=== PATIENT | female | born 1975 | race Caucasian/White ===

== ENCOUNTER → 2016-05-25 | Outpatient (CLI) | payer BC ==
[~2016-05-25] MED LIST: ALBU1AER9 INH; ESCI10TA17 PO; FLNIN/ NAE; LEVO-371 PO; OPTIRAY 320 IV PRN; RIVA1TAB4 PO
--- NOTE | 2016-05-25 17:23 | DIAGNOSTIC IMAGING REPORT ---
CT ANGIOGRAM OF THE CHEST CLINICAL HISTORY: Dyspnea. COMPARISON STUDY: Chest CT dated 01/06/2015. Chest x-ray dated 07/20/2015. TECHNIQUE: Following the IV administration of 99 cc of Optiray 320, CT angiogram of the chest was performed from the upper abdomen to the thoracic inlet utilizing the pulmonary embolus protocol. Images are reviewed in the axial, sagittal, and coronal planes. 3-D MIPS images are created and assessed. IV contrast was administered without complication. CT DOSE: 477.83 mGy.cm FINDINGS: Thyroid: Imaged portions of the thyroid gland are normal in size and attenuation. Thoracic aorta: The thoracic aorta is normal in caliber and demonstrates 4-vessel variant arch anatomy. No dissection is seen. Pulmonary vasculature: The pulmonary trunk is normal in caliber. There are no filling defects identified in main, lobar, or segmental pulmonary branches to suggest pulmonary embolus. Heart: The heart is normal in size and configuration, and without pericardial effusion. Lungs and pleural spaces: There is mild nonspecific peribronchial thickening. No airspace consolidation or pleural effusion is seen. A 3 mm right apical pulmonary nodule on image #234 is unchanged and of low suspicion. The trachea and central airways are patent. Mediastinum: There is no mediastinal lymphadenopathy. Shania: Clear. Axillae: There is no axillary lymphadenopathy. Upper abdomen: The liver is mildly enlarged and steatotic. A small hiatal hernia is identified. Skeletal structures: No lytic or blastic bony lesions are seen. IMPRESSION: 1. There is no evidence of pulmonary embolus in the main, lobar, or segmental pulmonary arteries. 2. There is no airspace consolidation or pleural effusion. Mild diffuse peribronchial thickening suggests reactive airway disease. Clinical correlation will be required. 3. Hepatic steatosis. Electronically signed by: Ravinder Killian M.D. 05/25/2016 5:21 PM Dictated Date/Time: 05/25/2016 5:12 PM
== END | disposition home or self-care (01) ==
LOC: C.CTS 16:46
PROVIDERS: ATTEND Family Medicine
DX: R06.02 Shortness of breath (principal); Z86.711 Personal history of pulmonary embolism; K76.0 Fatty (change of) liver, not elsewhere classified

== ENCOUNTER → 2017-05-04 | Outpatient (CLI) | payer OTHER ==
[~2017-05-04] MED LIST changes: -LEVO-371 PO; +LEVO5TAB2 PO; -OPTIRAY 320 IV PRN
[2017-05-04 10:38] LABS: ALBUMIN 3.6 gm/dl (3.4-5.0); ALT/SGPT 43 U/L (12-78); AST/SGOT 24 U/L (15-37); BLOOD UREA NITROGEN 12 mg/dl (7-18); CALCIUM 8.5 mg/dl (8.5-10.1); CARBON DIOXIDE 28 mmol/L (21-32); CREATININE 0.97 mg/dl (0.60-1.20); GLUCOSE 93 mg/dl (70-99); LIPASE 155 U/L (73-393); POTASSIUM 3.7 mmol/L (3.5-5.1); SODIUM 139 mmol/L (136-145)
[2017-05-04 11:10] LABS: ALKALINE PHOSPHATASE 74 U/L (45-117); TOTAL PROTEIN 7.2 gm/dl (6.4-8.2)
[2017-05-06 06:28] LABS: ANTICARDIOLIPID AB IGA <11 APL (< = 11)
== END | disposition home or self-care (01) ==
LOC: C.LAB1850 09:33
PROVIDERS: ATTEND Family Medicine
DX: Z86.711 Personal history of pulmonary embolism (principal); R07.89 Other chest pain